=== PATIENT | female | born 1965 | race Caucasian/White ===

== ENCOUNTER 2018-12-07 08:57 | Outpatient (REF) | payer BC, SELFPAY ==
--- NOTE | 2018-12-07 08:15 | PAPFT_PTH ---
PATIENT: TANVIR GUADALUPE LOC: [facility] U#:[id number] AGE/SX: 53/F ROOM: RE12/07/[address]: Claudine Robledo : 1965 BED: DIS: 12/07/2018 SPEC #: [id number] RECD: 12/07/18 12:51 STATUS: DONAVAN REQ #: [id number] SAIMA: 12/07/18 08:[address]: Claudine Robledo DEPT: [facility] Cytology RECD BY: Betty Wisdom ENTERED: 12/07/18 12:51 SP TYPE: PAPFT OTHR DR: Zohreh Matute Tissues: 1 - CX/ENDOCX FOR PAP SMEARS Procedures: PAP THIN PREP/[facility] Screening HPV DNA PROBE Comments: [id number]
== END 2018-12-07 09:17 ==
LOC: NCHCN 08:57
PROVIDERS: PCP Family Medicine; Visit Provider Nurse Practitioner
DX: Z12.4 Encounter for screening for malignant neoplasm of cervix (principal); Z11.51 Encounter for screening for human papillomavirus (HPV); Z00.00 Encounter for general adult medical examination without abnormal findings
CPT/HCPCS: 88142; 87624

== ENCOUNTER 2019-01-25 11:30 | Outpatient (REF) | payer BC, SELFPAY ==
[2019-01-25 18:31] LABS: HCT 40.7 % (36.0-46.0); HGB 13.6 g/dL (12.0-15.5); Mean Corp. HGB Concentration 33.4 g/dL (32.0-36.0); Mean Corpuscular Hemoglobin 29.9 pg (27.0-33.0); Mean Corpuscular Volume 89.5 fL (80-95); Mean Platelet Volume 9.4 fL (8.0-11.0); Platelet Count 289 x1000/uL (130-400); RBC 4.55 m/cumm (4.00-5.20); RBC Distribution Width 13.3 % (11.7-14.6); White Blood Cell Count 7.58 k/cumm (4.4-10.8)
[2019-01-25 18:58] LABS: ALT 35 U/L (14-59); AST 16 U/L (15-37); Albumin 3.9 g/dL (3.4-5.0); Alkaline Phosphatase 132 U/L (46-116); Anion Gap 7.9 mmol/L (3-11); BUN 10 mg/dL (7-18); Bilirubin, Total 0.4 mg/dL (0.2-1.0); CO2 28.1 mmol/L (21.0-32.0); CREATININE 0.77 mg/dL (0.55-1.02); Chloride 105 mmol/L (98-107); Glucose 95 mg/dL (70-100); Potassium 4.4 mmol/L (3.5-5.1); Sodium 141 mmol/L (136-145); TSH (W/Ref FT4) 1.42 uIU/mL (0.36-3.74); Total Protein 6.6 g/dL (6.4-8.2)
== END 2019-01-25 11:50 ==
LOC: NCHCO 11:30
PROVIDERS: PCP Family Medicine; Visit Provider Nurse Practitioner
DX: N92.4 Excessive bleeding in the premenopausal period (principal)
CPT/HCPCS: 80053; 85027; 84443

== ENCOUNTER 2019-01-28 01:36 | Outpatient (CLI) | payer BC, SELFPAY ==
--- NOTE | 2019-01-28 07:48 | DI.US_ITS ---
EXAM: US PELVIS TRANSVAGINAL CLINICAL HISTORY: MENORRHAGIA PERIMENOPAUSAL, N92.4 TECHNIQUE: Ultrasound performed using standard protocol. Transabdominal and transvaginal exams wer e performed. COMPARISON: No exams were available for comparison FINDINGS: The uterus is mildly retroverted and measures 8 x 4.4 x 4.6 cm. The endometrial stripe measures 6 m illimeters in thickness. No focal endometrial abnormality is seen. There is a low echogenicity area in the cervix measuring 2.8 x 2.5 cm which could represent a large nabothian cyst. There are several small fibroids in the anterior and posterior myometrium. They measured 2 and 2.2 cm in greatest dime nsion respectively. There is a 3.2 centimeter cyst on the left ovary which appears simple. There is no evidence of ovarian torsion. The right ovary is unremarkable. There is no hydronephrosis or darryn e fluid in the cul de sac. IMPRESSION: 3.2 centimeter simple cyst of the left ovary. A follow-up exam could be considered. 2.8 centimeter f luid collection in the cervix could represent a large nabothian cyst.
--- NOTE | 2019-01-28 10:54 | DI.MAMMO_ITS ---
EXAM: MG MAMMO SCREENING CLINICAL HISTORY: SCREENING, Z12.39 TECHNIQUE: Mammograms were interpreted according to the usual protocol including computer analysis w [email or web address] CAD system, tomosynthesis and C-view imaging. COMPARISON: [id number] FINDINGS: The breasts are composed of heterogeneously dense tissue, breast density category C. There are no do minant masses or microcalcifications. There has been no significant interval change in comparison wi th the previous exams. IMPRESSION: Category 1, negative mammogram. Routine yearly screening mammograms are recommended. BI-RADS Cat 1 - Negative Breast Density - Category C - Heterogeneously dense
== END 2019-01-28 01:56 ==
PROVIDERS: PCP Family Medicine; Visit Provider Nurse Practitioner
DX: Z12.31 Encounter for screening mammogram for malignant neoplasm of breast (principal); N92.4 Excessive bleeding in the premenopausal period; N83.292 Other ovarian cyst, left side; N85.4 Malposition of uterus; D25.9 Leiomyoma of uterus, unspecified
CPT/HCPCS: 77063; 77067; 76830; 76856

== ENCOUNTER 2019-03-02 15:47 | Outpatient (REF) | payer BC, SELFPAY ==
--- NOTE | 2019-03-02 14:30 | ENDOMET_PTH ---
PATIENT: TANVIR GUADALUPE LOC: [facility] U#:[id number] AGE/SX: 54/F ROOM: RE03/02/[address]: Alcira Gonzalez : 1965 BED: DIS: 03/02/2019 SPEC #: [id number] RECD: 03/02/19 17:20 STATUS: DONAVAN REQ #: [id number] SAIMA: 03/02/19 14:[address]: Alcira Gonzalez DEPT: Surgical Specimen RECD BY: Betty Wisdom ENTERED: 03/02/19 17:21 SP TYPE: Endomet OTHR DR: Zohreh Mattue Tissues: 1 - ENDOMETRIUM BX/EVELINE Procedures: GROSS AND MICRO LEVEL 4 Comments: [id number]
== END 2019-03-02 16:07 ==
LOC: LBN 15:47
PROVIDERS: PCP Family Medicine; Visit Provider Obstetrics & Gynecology Gynecology
DX: N85.01 Benign endometrial hyperplasia (principal); N93.8 Other specified abnormal uterine and vaginal bleeding; N71.9 Inflammatory disease of uterus, unspecified; N89.8 Other specified noninflammatory disorders of vagina
CPT/HCPCS: 88305

== ENCOUNTER 2019-03-02 17:04 | Outpatient (REF) | payer BC, SELFPAY | END 2019-03-02 17:24 | LOC: LBN 17:04 | PROVIDERS: PCP Family Medicine; Visit Provider Obstetrics & Gynecology Gynecology | DX: N85.9 Noninflammatory disorder of uterus, unspecified (principal) | CPT/HCPCS: 87077; 87070; 87186; 87205 ==

== ENCOUNTER 2019-05-11 15:35 | Outpatient (CLI) | payer BC, SELFPAY ==
[2019-05-11 15:56] LABS: HCT 40.9 % (36.0-46.0); HGB 14.1 g/dL (12.0-15.5); Mean Corp. HGB Concentration 34.5 g/dL (32.0-36.0); Mean Corpuscular Hemoglobin 30.3 pg (27.0-33.0); Mean Platelet Volume 8.9 fL (8.0-11.0); Platelet Count 252 x1000/uL (130-400); RBC 4.65 m/cumm (4.00-5.20); RBC Distribution Width 12.8 % (11.7-14.6); White Blood Cell Count 6.84 k/cumm (4.4-10.8)
[2019-05-11 16:50] LABS: Anion Gap 9.1 mmol/L (3-11); BUN 9 mg/dL (7-18); CO2 27.9 mmol/L (21.0-32.0); Calcium 8.8 mg/dL (8.5-10.1); Chloride 105 mmol/L (98-107); Glucose 100 mg/dL (74-106); Potassium 4.1 mmol/L (3.5-5.1); Sodium 142 mmol/L (136-145)
== END 2019-05-11 15:55 ==
PROVIDERS: PCP Family Medicine; Visit Provider Obstetrics & Gynecology Gynecology
DX: N71.9 Inflammatory disease of uterus, unspecified (principal)
CPT/HCPCS: 36415; 80048; 85027; 86850; 86900; 86901

== ENCOUNTER 2019-05-13 07:45 | Day surgery (SDC) | payer BC, SELFPAY ==
[2019-05-13 07:56] VITALS: BP 112/78; PULSE 72; RESP 16; TEMP 36.5; O2SAT 98
[2019-05-13] MEDS: Lactated Ringers 1,000 ML 125 ML IV (08:25)
--- NOTE | 2019-05-13 09:58 | ENDOMET_PTH ---
PATIENT: TANVIR GUADALUPE LOC: [facility] U#:[id number] AGE/SX: 54/F ROOM: RE05/13/[address]: Alcira Gonzalez : 1965 BED: DIS: 05/13/2019 SPEC #: [id number] RECD: 05/13/19 12:55 STATUS: DONAVAN REQ #: [id number] SAIMA: 05/13/19 09:[address]: Alcira Gonzalez DEPT: Surgical Specimen RECD BY: Betty Wisdom ENTERED: 05/13/19 12:55 SP TYPE: Endomet OTHR DR: Zohreh Matute Tissues: 1 - ENDOMETRIUM BX/EVELINE Procedures: GROSS AND MICRO LEVEL 4 Comments: [id number]
[2019-05-13] MEDS: Bupivacaine 0.25% Pres-Free 30 ML VIAL (10:20)
[2019-05-13] MEDS: oxyCODONE 5 mg/Acetaminophen 325 mg TAB PO (10:42)
[2019-05-13 10:45] VITALS: BP 101/67; PULSE 67; RESP 16; TEMP 36.3; O2SAT 95
--- NOTE | 2019-05-13 10:49 | PDOC.DSDIS_ITS ---
Discharge Plan Disposition Patient Disposition: HOME Condition: Good Discharge Details Reason For Visit: Diagnostic hysteroscopy and D&C Attending Provider: Alcira Gonzalez Primary Care Provider: Zohreh Matute Discharge Instructions Additional Instructions: Follow-up with Dr. Gonzalez in approximately 2 weeks to discuss results of the D&C. You can expect a small amount of bleeding after the procedure. Call with any pain not relieved by ibuprofen or heavy vaginal bleeding. In my absence Dr. Plata will be covering call this weekend. He can be reached at [phone] and tell the preservative filler machine operator to page the CELLOPHANER on-call. Stand Alone Forms: DSU Post Suction D+C Activity:: Activity as Tolerated Diet:: As Tolerated Discharge Orders Discharge Orders: Discharge Order (Routine); Ordered 05/13/19 Ordered By: Alcira Gonzalez DS: Diagnosis Discharge Diagnosis (1) Status post hysteroscopy: Status: Acute
[2019-05-13 10:57] VITALS: BP 105/72; PULSE 59; RESP 14; TEMP 36.5; O2SAT 99
--- NOTE | 2019-05-14 17:29 | W.PM.OP ---
Date of service: 05/13/19 Time of Service: 17:29 Operative Note Operative Note DATE OF PROCEDURE: 05/13/19 PRE-OP DIAGNOSIS: History of pyometria POST-OP DIAGNOSIS: same PROCEDURE: Diagnostic hysteroscopy and suction D&C SURGEON: Alcira Gonzalez ANESTHESIA: MAC ESTIMATED BLOOD LOSS: 5 PATHOLOGY: other (Endometrial curettings) COMPLICATIONS: None Patient was transported to: same day Patient's condition: stable Indications: 54-year-old postmenopausal female recently diagnosed with the a pyometria of the uterus. No evidence of abnormal endometrial cells biopsy. Findings: Uterine cavity was irregular in contour multiple small fibroids distorting the fundus and sidewalls. Both tubal ostia were visualized. No intracavitary filling defects noted. Procedure Description: Patient was brought to the operating room where she was placed in the dorsal supine position and monitored anesthesia care was administered without difficulty she was then placed in the dorsal lithotomy position in yellowfin stirrups with SCDs in place. Surgical timeout was performed no antibiotics were required. She was prepped and draped in the usual sterile fashion. A bivalve speculum was placed into the vagina and the anterior lip of the cervix was infiltrated with quarter percent Marcaine without epinephrine and then grasped with a single-tooth tenaculum. Paracervical block was performed at the 4 and 8:00 positions respectively with quarter percent Marcaine without epinephrine. The cervix was sequentially dilated to a maximum of 19 Ramos after being sounded for a depth of 7 cm. The hysteroscope was introduced into the uterine cavity under direct visualization with normal saline as the distention medium with the above-noted findings. The hysteroscope was then removed and a 6 mm flexible suction cannula was inserted into the uterine cavity attached to 50 mmHg pressure and all 4 quadrants the uterine cavity was sequentially suction curetted. Suction can yellow was removed a curved banjo curette was inserted in all 4 quadrants of the uterine cavity with a gently curetted with scant amount of tissue returned. The banjo curette was removed and and hysteroscope was used to inspect the uterine cavity which appeared hemostatic. All instruments were removed from the vagina the tenaculum site was noted be hemostatic. Patient was then placed in the dorsal side supine position awakened and transported recovery area in stable condition all sponge lap and needle counts correct x2.
== END 2019-05-13 11:15 | disposition home or self-care (01) ==
PROVIDERS: PCP Nurse Practitioner; Visit Provider Obstetrics & Gynecology Gynecology
PROC: (CPT 59841; principal; 2019-05-13 09:00)
DX: N71.9 Inflammatory disease of uterus, unspecified (principal); F17.210 Nicotine dependence, cigarettes, uncomplicated
CPT/HCPCS: 58558; 88305; J1885; J2001; J2405

== ENCOUNTER 2019-08-11 22:53 | Outpatient (REF) | payer BC, SELFPAY ==
[2019-08-11 21:45] LABS: Bilirubin Negative (Negative); Blood Moderate (Negative); Clarity Sl Cloudy (Clear); Glucose Negative (Negative); Ketones Negative (Negative); Leukocyte Esterase Moderate (Negative); Nitrite Positive (Negative); Urobilinogen 0.2 EU/dL (Up TO 0.2); pH 5.5 (5-8)
[2019-08-11 22:28] LABS: Bacteria Moderate HPF (Negative); C & S Indicated? Yes; Casts Negative LPF (Negative); Crystals Negative HPF (Negative); Epithelial Cells Rare HPF (Negative); Mucus Negative (Negative); Other Cells Negative (Negative); WBC 20-50 HPF (0-5)
== END 2019-08-11 23:13 ==
LOC: NCHCN 22:53
PROVIDERS: PCP Nurse Practitioner; Visit Provider Physician Assistant
DX: R35.0 Frequency of micturition (principal)
CPT/HCPCS: 87077; 81003; 81015; 87086; 87186